=== PATIENT | female | born 1940 | race African-American/Black ===

== ENCOUNTER 2017-04-28 08:00 | Outpatient (CLI) | payer MEDICARE | END 2017-04-28 08:01 | disposition home or self-care (01) | LOC: BICMAMMO 08:00 | PROVIDERS: ATTEND Obstetrics & Gynecology | DX: Z12.31 Encounter for screening mammogram for malignant neoplasm of breast (principal) | CPT/HCPCS: 77063 ==

== ENCOUNTER 2022-02-25 09:53 | Outpatient (CLI) | payer MEDICARE | END 2022-02-25 09:54 | disposition home or self-care (01) | LOC: BICMAMMO 09:53 | PROVIDERS: ATTEND Obstetrics & Gynecology | DX: Z13.820 Encounter for screening for osteoporosis (principal); Z78.0 Asymptomatic menopausal state | CPT/HCPCS: 77080 ==